=== PATIENT | female | born 1995 | race Caucasian/White ===

== ENCOUNTER 2022-07-12 06:27 | Emergency (ER) | payer BC ==
[~2022-07-12] VITALS: Ht 165.1 cm; Wt 81.8 kg
[2022-07-12 06:33] VITALS: TEMP 97.8
[2022-07-12] MEDS ORDERED: FLAGYL500 MG PO (07:40)
[2022-07-12] MEDS ORDERED: ZYRTEC 10MG10 MG PO (07:40)
[2022-07-12] MEDS ORDERED: DOXYCYCLINE HY100 MG PO (07:40)
[2022-07-12 07:48] VITALS: BP 109/73; PULSE 58
== END 2022-07-12 07:48 | disposition home or self-care (01) ==
LOC: COL.ER 06:27
DX: L50.9 Urticaria, unspecified (principal); Z88.0 Allergy status to penicillin